=== PATIENT | male | born 1935 | race Two or more races ===

== ENCOUNTER → 2017-10-03 15:37 | Outpatient (CLI) | payer OTHER | END | disposition home or self-care (01) | LOC: LAB 15:37 | DX: Z51.81 Encounter for therapeutic drug level monitoring (principal) ==

== ENCOUNTER → 2017-10-13 | Outpatient (CLI) | payer OTHER | END | disposition home or self-care (01) | LOC: NUCLEAR 09:58 | DX: C61 Malignant neoplasm of prostate (principal) | CPT/HCPCS: 78306; A9503 ==

== ENCOUNTER 2017-10-17 07:18 | Outpatient (CLI) | payer OTHER | END 2017-10-17 07:28 | disposition home or self-care (01) | LOC: TOM 07:18 | DX: N20.0 Calculus of kidney (principal); N28.1 Cyst of kidney, acquired; K57.30 Diverticulosis of large intestine without perforation or abscess without bleeding | CPT/HCPCS: 74178; Q9965 ==

== ENCOUNTER 2018-07-19 08:47 | Outpatient (CLI) | payer OTHER | END 2018-07-19 08:49 | disposition home or self-care (01) | LOC: TOM 08:47 | DX: K45.8 Other specified abdominal hernia without obstruction or gangrene (principal); Z98.890 Other specified postprocedural states; K42.9 Umbilical hernia without obstruction or gangrene ==

== ENCOUNTER 2018-11-05 09:04 | Outpatient (CLI) | payer OTHER | END 2018-11-05 09:15 | disposition home or self-care (01) | LOC: TOM 09:04 | DX: C61 Malignant neoplasm of prostate (principal) ==

== ENCOUNTER → 2018-11-13 | Outpatient (CLI) | payer OTHER | END | disposition home or self-care (01) | LOC: NUCLEAR 11-12 08:00 | DX: C61 Malignant neoplasm of prostate (principal) | CPT/HCPCS: 78306; A9503 ==

== ENCOUNTER 2019-04-26 08:48 | Outpatient (CLI) | payer OTHER | END 2019-04-26 08:50 | disposition home or self-care (01) | LOC: TOM 08:48 | DX: Z48.816 Encounter for surgical aftercare following surgery on the genitourinary system (principal) | CPT/HCPCS: 74177; Q9965 ==

== ENCOUNTER 2023-12-15 14:06 | Outpatient (CLI) | payer OTHER | END 2023-12-15 14:12 | disposition home or self-care (01) | LOC: RAD 14:06 | PROVIDERS: ATTEND Internal Medicine Pulmonary Disease | DX: J45.31 Mild persistent asthma with (acute) exacerbation (principal) ==